=== PATIENT | female | born 1990 | race Caucasian/White ===

== ENCOUNTER → 2020-04-07 11:30 | Outpatient (BNVA) | payer OTHER, SELFPAY | PROVIDERS: PCP Internal Medicine; Visit Provider Orthopaedic Surgery | DX: Z76.89 Persons encountering health services in other specified circumstances (principal) ==

== ENCOUNTER 2020-04-14 13:11 | Outpatient (REF) | payer OTHER, SELFPAY ==
[2020-04-14 14:00] LABS: COVID-19 Test Negative (Negative)
== END 2020-04-14 13:12 | disposition home or self-care (01) ==
LOC: HO.LAB 13:11
PROVIDERS: PCP Internal Medicine; Visit Provider Internal Medicine
DX: Z20.828 Contact with and (suspected) exposure to other viral communicable diseases (principal)
CPT/HCPCS: 87635

== ENCOUNTER 2020-05-10 16:22 | Outpatient (REF) | payer SELFPAY ==
[2020-05-10 17:41] LABS: Vitamin D 25-OH Total 24.2 ng/mL (>30)
== END 2020-05-10 16:23 | disposition home or self-care (01) ==
LOC: HO.LNC 16:22
PROVIDERS: Visit Provider Pathology Anatomic Pathology & Clinical Pathology
DX: Z13.89 Encounter for screening for other disorder (principal)
CPT/HCPCS: 82306

== ENCOUNTER 2020-05-25 07:07 | Day surgery (SDC) | payer OTHER, SELFPAY ==
[2020-05-22 08:33] VITALS: BMI 23.0
--- NOTE | 2020-05-23 12:17 | HO.ANESPROP2 ---
Documented by User: Adilia Bass 05/23/20 12:18 HPI - Anesthesia Eval Consult details Narrative: 29yo F for Removal Orthopedic Hardware Ankle PMFSH Past Medical History Medical History History of ankle fracture Family History Family History Father No problems noted. Mother No problems noted. Brother No problems noted. Sister No problems noted. Surgical History Surgical History History of ankle surgery Social History Social History Smoking Status: Never smoker Use of substances other than those prescribed or required for medical reasons: No Advance Directives Information Provided: No Current occupation: [employer] - Right Handed Meds Allergies Allergy/AdvReac Type Severity Reaction Status Date / Time Sulfa (Sulfonamide Allergy Intermediate HIVES, Verified 05/25/20 07:43 Antibiotics) rash/fever [SULFA(SULFONAMIDE ANTIBIOTICS)] Home Medications Medication Instructions Recorded Confirmed Type ibuprofen 400 mg tablet 400 mg PO TID 03/22/20 03/25/20 History Exam Exam Date and Time: May 23, 2020 1217 Height,Weight and Vital Signs: Height 5 ft Weight 53.524 kg Assessment and Plan Assessment Anesthesia Assessment: Chart Reviewed Documented by User: Morro Rosa MD 05/25/20 09:42 PMFSH Past Medical History Medical History History of ankle fracture Family History Family History Father No problems noted. Mother No problems noted. Brother No problems noted. Sister No problems noted. Surgical History Surgical History History of ankle surgery Social History Social History Smoking Status: Never smoker Use of substances other than those prescribed or required for medical reasons: No Advance Directives Information Provided: No Current occupation: [employer] - Right Handed Meds Allergies Allergy/AdvReac Type Severity Reaction Status Date / Time Sulfa (Sulfonamide Allergy Intermediate HIVES, Verified 05/25/20 07:43 Antibiotics) rash/fever [SULFA(SULFONAMIDE ANTIBIOTICS)] Home Medications Medication Instructions Recorded Confirmed Type ibuprofen 400 mg tablet 400 mg PO TID 03/22/20 03/25/20 History Exam Airway Mallampati Class: I TM Dist: >3cm Neck ROM: Full Loose/Missing/Broken Teeth: No Heart: rrr Lungs: nl Other: ao Assessment and Plan Assessment Anesthesia Assessment: Anesthesia Plan Discussed Final Anesthetic Review NPO: No ASA Class: I Final Preanesthetic Review: No Changes in Pt Med Stat, Meds/Allgs Chart Reviewed, Consent Obtained/Reviewed and Anes Risks/Benef Reviewed Patient Risk: Low Procedure Risk: Low Anesthetic Plan Anesthetic Plan: GA and Regional Block Disposition: Standard PACU
--- NOTE | 2020-05-24 15:00 | MHC.SHP ---
Pre-Procedural Eval Section B Chief Complaint: Painful hardware of Right Ankle Relevant Family History (Specify if Yes): No Relevant Social History: None Present Medications: see Short Stay Collaborative assessment Medical History: No relevant PMH Allergies: Allergies Allergy/AdvReac Type Severity Reaction Status Date / Time Sulfa (Sulfonamide Allergy Intermediate HIVES, Verified 05/22/20 08:39 Antibiotics) rash/fever [SULFA(SULFONAMIDE ANTIBIOTICS)] Review of Systems Sugical H&P ROS: Negative: Constitution, Cardiovascular, Respiratory, Neurological, Psychiatric, Hem-Onc, Allergic/Immunologic, Gastrointestinal, Genitourinary, Integumentary, Endocrine and Eyes/Ears/Nose/Throat Exam Surgical H&P Exam: Normal: HEENT, Normal: Heart, Normal: Lungs, Normal: Abdomen and Normal: Neurological and Not Evaluated: Extremities Plan Diagnosis/Plan: Unchanged Patient has been examined and remains a candidate for the planned procedure
[2020-05-25] VITALS (7 sets, daily range): BP systolic 105–127; BP diastolic 59–86; PULSE 72–108; RESP 14–21; TEMP 36.6–37.1; O2SAT 95–100
[2020-05-25 07:25] LABS: UPreg QC Valid YES; Urine Pregnancy NEGATIVE (NEGATIVE)
[2020-05-25] MEDS: Lactated Ringers 1,000 ML 100 ML IVCONT (07:33)
--- NOTE | 2020-05-25 08:04 | FL_ITS ---
EXAMINATION: XR FLUOROSCOPY WITH IMAGES CLINICAL INFORMATION: Hardware removal right ankle COMPARISON: Radiographs right ankle 05/07/2016 TECHNIQUE: Fluoroscopy performed by Dr. Tariq Instrizabella. Fluoroscopy time: under 1 minute DAP: 0.008 mGycm2 Images: 1 FINDINGS: The previously noted hardware distal fibular shaft and screws distal tibia are no longer demonstrated. Unremarkable screw tracks are present as expected. There are skin lynda overlying the medial ankle. FL/FL guidance in OR IMPRESSION: Hardware no longer demonstrated. Skin lynda present medial side.
--- NOTE | 2020-05-25 10:01 | PM.PRCOR ---
Brief Operative Note Date of procedure: 05/25/20 Pre-op diagnosis: painfull hardware right ankle Post-op diagnosis: same Procedure: removalhardware right ankle Anesthesia: GLMA Surgeon: Marciano Richard Estimated blood loss (mL): 3 Pathology: none sent Condition: stable Disposition: PACU
--- NOTE | 2020-05-31 16:09 | OP_ITS ---
SURGEON: Marciano Richard MD PREOPERATIVE DIAGNOSIS: Painful hardware, right ankle. POSTOPERATIVE DIAGNOSIS: Painful hardware, right ankle. PROCEDURE PERFORMED: Removal of hardware, right ankle. ESTIMATED BLOOD LOSS: COMPLICATIONS: ANESTHESIA: ASSISTANTS: SPECIMENS: CLINICAL NOTE: This lady underwent an open reduction and internal fixation of her right ankle a number of years ago. Recently, has been giving more problem with the hardware and therefore after explaining the risks, benefits, and alternatives and answering all the questions, it was mutually agreed upon to carry out the following procedure. DESCRIPTION OF PROCEDURE: Under a general anesthetic with a block, the patient was placed supine on the operating table. A pneumatic tourniquet cuff was placed around the upper right thigh and inflated to 300 mm of Hg at the beginning of the case. The right foot and ankle were then prepped and draped in standard fashion. Surgical time-out was then performed. The patient was identified, procedure confirmed, site confirmed. Medical analogy and history were reviewed. No preoperative. Standard DVT prophylaxis. All other items were discussed and agreed upon. Under fluoroscopic guidance approach to the medial side, first the medial incision was opened. It was dissected down through the soft tissues. The heads of the screw were identified. They were successfully removed. Turning our attention to the lateral side, the old incision was opened. The soft tissues were divided over the plate. The soft tissues were then elevated exposing the whole plates and screws. All the screws were then removed and the plate was removed. The screw holes were then debrided. Image was taken under fluoroscopy confirming all the hardware was gone and therefore proceeded to closure. The incisions were closed identically. The deep tissue was approximated loosely with #2 Dexon. The skin approximated using interrupted 2-0 Dexon. Skin was closed with lynda. The tourniquet was let down. Total tourniquet time 36 minutes. Sterile dressing was then applied. An Jerzy wraps was applied. The patient's anesthesia was then reversed and transferred supine to the room bed and taken to recovery room in good condition. Intraoperatively, there was approximately 5 mL blood loss. No complications. Marciano Richard MD KKI/MIGUEL ANGELL / [id number]
== END 2020-05-25 11:50 | disposition home or self-care (01) ==
PROVIDERS: Nurse Practitioner; PCP Internal Medicine; Visit Provider Orthopaedic Surgery
PROC: (CPT 20680; principal; 2020-05-25 08:30)
DX: T84.84XA Pain due to internal orthopedic prosthetic devices, implants and grafts, initial encounter (principal); G89.18 Other acute postprocedural pain; M25.571 Pain in right ankle and joints of right foot; Z88.2 Allergy status to sulfonamides
CPT/HCPCS: 20680; 81025; J2250; J2405; J3010

== ENCOUNTER → 2020-06-13 12:22 | Outpatient (BNVA) | payer OTHER, SELFPAY | PROVIDERS: PCP Internal Medicine; Visit Provider Orthopaedic Surgery | DX: Z76.89 Persons encountering health services in other specified circumstances (principal) ==

== ENCOUNTER → 2020-06-21 08:42 | Outpatient (BNVA) | payer OTHER, SELFPAY | PROVIDERS: Visit Provider Orthopaedic Surgery | DX: Z76.89 Persons encountering health services in other specified circumstances (principal) ==

== ENCOUNTER 2020-06-24 10:36 | Inpatient (IN) | payer OTHER, SELFPAY ==
[2020-06-24] VITALS (19 sets, daily range): BP systolic 100–123; BP diastolic 53–90; PULSE 66–88; RESP 16–20; TEMP 36.1–37.2; O2SAT 97–100; BMI 23.0
--- NOTE | 2020-06-24 09:16 | MHC.SHP ---
Pre-Procedural Eval Section B Chief Complaint: Per Karoline - Surgery no order provided Details of Present Illness: This lady had undergone hardware of her ankle a few weeks ago. She has developed some redness and discomfort involving the medial side. Because of this lack of improvement she has come in today for an irrigation and debridement off the medial aspect of her right ankle. Relevant Family History (Specify if Yes): No Relevant Social History: None Present Medications: None Medical History: No relevant PMH History of Previous Operations: No relevant previous surgery Allergies: Allergies Allergy/AdvReac Type Severity Reaction Status Date / Time Sulfa (Sulfonamide Allergy Intermediate HIVES, Verified 05/25/20 07:43 Antibiotics) rash/fever [SULFA(SULFONAMIDE ANTIBIOTICS)] Review of Systems Sugical H&P ROS: Negative: Constitution, Cardiovascular, Respiratory, Neurological, Psychiatric, Hem-Onc, Allergic/Immunologic, Gastrointestinal, Genitourinary, Integumentary, Endocrine and Eyes/Ears/Nose/Throat Exam Surgical H&P Exam: Normal: HEENT, Normal: Heart, Normal: Lungs, Normal: Abdomen, Normal: Skin and Normal: Neurological and Significant Findings: Extremities (Some erythema surrounding incision. Minimal discharge. Tender.) Plan Diagnosis/Plan: Unchanged I have reviewed the history and physical and performed a pertinent physical examination on my patient. No changes have occurred unless specified.
[2020-06-24 09:33] LABS: COVID-19 Test Negative (Negative)
[2020-06-24 09:43] LABS: UPreg QC Valid YES; Urine Pregnancy NEGATIVE (NEGATIVE)
[2020-06-24] MEDS: Lactated Ringers 1,000 ML 100 ML IVCONT ×3 (09:45→21:53)
--- NOTE | 2020-06-24 10:06 | HP_ITS ---
DATE OF SERVICE: 06/24/2020 ADMISSION DIAGNOSIS: Painful medial incision, possible infection, post removal of hardware from the right ankle. CLINICAL NOTE: This lady underwent a removal of hardware a few weeks ago. Postoperatively, she has had some difficulty with pain on the medial incision. There is some erythema and minimal amount of discharge. Therefore, for precautions, she is being brought in for incision and drainage. PAST MEDICAL HISTORY: Unremarkable. MEDICATIONS: None. ALLERGIES: SULFA DRUGS. REVIEW OF SYSTEMS: Unremarkable. PHYSICAL EXAMINATION: HEAD AND NECK: Clear. CHEST: Clear. HEART: Sounds dull. ABDOMEN: Unremarkable. EXTREMITIES: On the medial side of the right ankle, there was some erythema. The incision is closed, but there has been some discharge in the past. Distal neurovascular is intact. PLAN: Because of the ongoing discomfort and the erythema, we have elected to bring her back to the operating room for an incision and drainage. We have discussed the risks, benefits, and alternatives of the surgery including the risk of infection, bleeding, nerve injury, ongoing pain, swelling, stiffness, need for further surgery, other complications were not limited to those of anesthetics. I have answered all her questions. She has been booked for an I and D of her right ankle. MD KARON Walker/PLACIDO / [id number]
--- NOTE | 2020-06-24 10:13 | P.CONAN_ITS ---
[facility] Past Medical History Medical History History of ankle fracture Family History Family History Father No problems noted. Mother No problems noted. Brother No problems noted. Sister No problems noted. Surgical History Surgical History History of ankle surgery Social History Social History Smoking Status: Never smoker Second Hand Smoke Exposure: No Use of substances other than those prescribed or required for medical reasons: No Advance Directives: No Advance Directives Information Provided: No Advance Directives on File: No Recently lost weight without trying: No Current occupation: [employer] - Right Handed Meds Allergies Allergy/AdvReac Type Severity Reaction Status Date / Time Sulfa (Sulfonamide Allergy Intermediate HIVES, Verified 05/25/20 07:43 Antibiotics) rash/fever [SULFA(SULFONAMIDE ANTIBIOTICS)] Home Medications Medication Instructions Recorded Confirmed Type ibuprofen 400 mg tablet 400 mg PO TID 03/22/20 03/25/20 History Exam Exam Date and Time: June 24, 2020 1013 Height,Weight and Vital Signs: Height 5 ft Weight 53.524 kg Last Vital Signs Temp 98.6 F 06/24/20 09:14 Pulse 83 06/24/20 09:14 Resp 16 06/24/20 09:14 BP 115/80 06/24/20 09:14 Pulse Ox 98 06/24/20 09:14 Pertinent Lab Results Pertinent Lab Results: Laboratory Tests 06/24/20 06/24/20 09:02 09:02 Urine Test NEGATIVE COVID-19 (ROB) Negative COVID-19 Clin Com See Note Airway Mallampati Class: II TM Dist: >3cm Neck ROM: Full
[2020-06-24] MEDS: fentaNYL citrate/PF 100 MCG/2 ML VIAL 50 MCG IVPUSH ×4 (10:44→11:20)
--- NOTE | 2020-06-24 10:48 | PM.PRCOR ---
Brief Operative Note Date of procedure: 06/24/20 Pre-op diagnosis: delayed wound healling with possible infection Post-op diagnosis: other (delayed wound healing with no infection) Anesthesia: GLMA Surgeon: Marciano Richard Estimated blood loss (mL): 5 Pathology: other (cultures sent) Condition: stable Disposition: PACU
[2020-06-24] MEDS: traMADoL HCL 50 MG TABLET PO ×2 (11:14→19:35)
--- NOTE | 2020-06-24 11:35 | OP_ITS ---
SURGEON: Marciano Richard MD PREOPERATIVE DIAGNOSIS: Delayed wound healing with possible infection, medial incision right ankle. POSTOPERATIVE DIAGNOSIS: Delayed wound healing with no evidence of infection, right ankle. PROCEDURE PERFORMED: ESTIMATED BLOOD LOSS: COMPLICATIONS: ANESTHESIA: ASSISTANTS: SPECIMENS: CLINICAL NOTE: This lady had undergone removal of hardware few weeks ago. She has had problems with irritation and pain on the medial side of her wound. She subsequently developed a pruritic rash on her upper leg as well. Therefore, after explaining the risks, benefits, and alternatives and answering all the questions, it was mutually agreed upon to carry out the following procedure. DESCRIPTION OF PROCEDURE: Under a general anesthetic, the patient was placed supine on the operating table. Pneumatic tourniquet cuff was placed around the upper right thigh, but was not inflated during the case. The right foot and ankle were then prepped and draped in standard fashion. Surgical time-out was then performed. The patient was identified, procedure confirmed, site confirmed. Medical analogy and history reviewed. No preoperative antibiotics were given. Standard DVT prophylaxis was in place. All other items were discussed and agreed upon. The incision was opened along the old scar. There was some granulated tissue in the center, which was debrided. There was no purulence. There was no fluid. This flaps were elevated on both sides. Cultures were taken and then 2 g of IV Kefzol were given. The whole area was inspected. The soft tissues including the deltoid ligament were healed. There was no evidence of any erythema, redness, or necrotic tissue. There was no evidence of any discharge or fluid . Areas that were bleeding were cauterized. The wound was then thoroughly irrigated and then it was closed with 3-0 nylon sutures. Sterile dressing was then applied. The patient's anesthesia was then reversed. They were transferred supine to the room bed and taken to recovery room in good condition. Intraoperatively, there was virtually no blood loss, no complications. Marciano Richard MD KKI/MODL / [id number]
[2020-06-24] MEDS: Morphine Sulfate 2 MG/ML CARTRIDGE IVPUSH ×5 (12:32→21:51)
[2020-06-24] MEDS: Ketorolac Tromethamine 15 MG/ML VIAL IVPUSH ×2 (17:22→23:00)
[2020-06-24] MEDS: ceFAZolin Sodium/Dextrose,Iso 2 GM/50 ML PIGGYBACK IV (18:40)
--- NOTE | 2020-06-24 21:20 | MHC.PIE ---
p; pt c/o pain 11/30. note; prn ultram 50 mg and prn morphine 2 mg iv given with no effect i; dr alex notified; new order ultram 100 mg po q4h prn e; will cont to monitor
[2020-06-24] MEDS: traMADoL HCL 50 MG TABLET 100 MG PO (23:00)
[2020-06-25] VITALS (7 sets, daily range): BP systolic 105–119; BP diastolic 61–82; PULSE 63–82; RESP 15–16; TEMP 36.3–37.3; O2SAT 99–100
--- NOTE | 2020-06-25 | XR_ITS ---
EXAMINATION: XR ANKLE, RIGHT CLINICAL INFORMATION: Removal of hardware. COMPARISON: Right ankle 05/07/2016 TECHNIQUE: AP, lateral, and mortise views of the right ankle. FINDINGS: There is removal of lateral fibular plate and screws and 2 medial malleolar screws. There is no erosions to suspect any osteomyelitis. There is nonspecific mild medial malleolar soft tissue swelling. The ankle mortise and subtalar joints are normal. XR/XR ankle RT min 3V IMPRESSION: Status post removal of fibular plate and screws and 2 medial malleolar screws there is no periosteal erosive changes or change in bony density to suspect any osteomyelitis. There is minimal medial malleolar soft tissue swelling.
[2020-06-25] MEDS: Morphine Sulfate 2 MG/ML CARTRIDGE IVPUSH ×6 (00:06→23:36)
[2020-06-25] MEDS: ceFAZolin Sodium/Dextrose,Iso 2 GM/50 ML PIGGYBACK IV ×3 (02:24→18:12)
[2020-06-25] MEDS: Ketorolac Tromethamine 15 MG/ML VIAL IVPUSH ×4 (05:24→22:40)
[2020-06-25] MEDS: traMADoL HCL 50 MG TABLET 100 MG PO (05:24)
[2020-06-25] MEDS: Lactated Ringers 1,000 ML 100 ML IVCONT ×3 (05:25→23:37)
--- NOTE | 2020-06-25 07:50 | PM.PNORT ---
Subjective Subjective Date of Service: 06/25/20 Principal diagnosis: Postop right ankle incision and drainage Interval history: Has had significant problems with pain control postop. Has been able to move her ankle in foot those uncomfortable on the inside. Has been on morphine IV as well as tramadol which was increased by Dr. Madison 200 mg q.6 with minimal benefits. No other interval issues. Gram stain from surgery demonstrated no organisms and some polys. Has been on IV kefzol overnight. Physical Exam Vital Signs: Vital Signs: Last Vital Signs Temp 97.5 F 06/25/20 07:36 Pulse 78 06/25/20 07:36 Resp 16 06/25/20 07:36 BP 119/82 06/25/20 07:36 Pulse Ox 100 06/25/20 07:36 Body Mass Index 23.0 Extrem: Other: Examination of the ankle with the Jerzy wrap off, demonstrates there is no staining on the dressing. There is no significant swelling. She is able to actively flex and extend her toes and ankle though she says there is some pain. Progress Note: A&P Assessment and plan (1) Ankle pain, right: Problem details: With her ongoing pain we will keep her at this time to try to control this. We do not have a good reason why she has the pain that she has. At the time of surgery everything looked. There was no discharge or necrotic type tissue. Is possible though not likely that she may have osteomyelitis which would not seen by as is only few weeks postop from index procedure E be felt more likely that she has have evidence of infection with the soft tissues. What we will do today though is get CBC and an x-ray just to have a low. We will convert her pain medication to Dilaudid IV in oral to see get that at the control. And we will re-evaluate more all. Status: Acute Fall Risk Details Current Medications: Current Medications Generic Name Dose Route Start Last Admin Trade Name Freq PRN Reason Stop Dose Admin Acetaminophen 650 mg 06/24/20 10:36 Acetaminophen Supp 650 Mg Supp.Rect CA Q6H PRN Pain, Mild (Pain Scale 1-3) Hydromorphone HCl 0.25 mg 06/25/20 07:38 Hydromorphone Hcl 0.5 Mg/0.5 Ml Syringe IVPUSH Q4H PRN Pain, Severe (Pain Scale 7-10) Hydromorphone HCl 1 mg 06/25/20 07:38 Hydromorphone Hcl 2 Mg Tablet PO Q4H PRN Pain, Moderate (Pain Scale 4-6 Lactated Ringer's 1,000 mls @ 100 mls/hr 06/24/20 09:45 06/25/20 05:25 Lr IVCONT 100 mls/hr .Q10H KAVYA Administration Cefazolin Sodium/Dextrose 2 gm in 50 mls @ 100 mls/hr 06/24/20 10:45 06/25/20 02:57 Ancef IV Infused Q8H KAVYA Infusion Ketorolac Tromethamine 15 mg 06/24/20 11:30 06/25/20 05:24 Ketorolac Tromethamine 15 Mg/Ml Vial IVPUSH 15 mg Q6H KAVYA Administration Naloxone HCl 0.2 mg 06/25/20 07:38 Naloxone Hcl 0.4 Mg/Ml Vial IVPUSH Q2M PRN Excessive sedation or RR < 8 Ondansetron HCl 4 mg 06/24/20 09:33 Ondansetron Hcl 4 Mg/2 Ml Vial IVPUSH ONCE PRN Nausea and Vomiting Ondansetron HCl 4 mg 06/24/20 10:36 Ondansetron Hcl 4 Mg/2 Ml Vial IVPUSH Q8H PRN Nausea and Vomiting Sodium Chloride 3 ml 06/24/20 16:00 06/24/20 23:00 0.9 % Sodium Chloride Flush 3 Ml Syringe IVFLUSH Not Given QSHIFT KAVYA Sodium Chloride 3 ml 06/25/20 08:00 0.9 % Sodium Chloride Flush 3 Ml Syringe IVFLUSH QSHIFT KAVYA Sodium Chloride 3 ml 06/25/20 08:00 0.9 % Sodium Chloride Flush 3 Ml Syringe IVFLUSH QSHIFT KAVYA Time Spent With Patient Time: Total time spent is greater than 50% in coordination of care (as documented) at patient's floor/unit and/or counseling patient: Time with patient: less than 15 minutes
[2020-06-25 08:34] LABS: Baso%MD 0.1 %; Hematocrit 30.7 % (37-47); Hemoglobin 9.8 g/dl (12.0-16.0); IG%MD 0.4 %; Lymph%MD 17.5 %; Mean Corpuscular HGB Conc 31.9 g/dl (31.0-35.0); Mean Corpuscular Hemoglobin 28.7 pg (27.0-33.0); Mean Platelet Volume 9.2 fL (9.4-12.3); Mono%MD 11.1 %; Neut%MD 70.9 %; Platelet Count 359 X10*3/uL (160-400); Red Blood Count 3.41 X10*6/uL (4.20-5.50); Red Cell Distribution Width 12.8 % (11.0-16.0); White Blood Count 7.4 X10*3/uL (4.8-10.8)
[2020-06-25] MEDS: HYDROmorphone HCl 0.5 MG/0.5 ML SYRINGE 0.25 MG IVPUSH ×3 (08:54→19:54)
[2020-06-25] MEDS: 0.9 % Sodium Chloride Flush 3 ML SYRINGE IVFLUSH ×2 (08:55→14:50)
[2020-06-25 10:10] LABS: Lymphocytes Absolute Manual 1.1 X10*3/uL (0.6-4.8); Lymphocytes Percent Manual 15 % (20-40); Monocytes Absolute Manual 0.4 X10*3/uL (0.0-1.2); Monocytes Percent Manual 5 % (2-11); Neutrophils Percent Manual 80 % (45-73)
[2020-06-25 10:11] LABS: Band Neutrophils Percent 0 % (3-5); Hypochromasia 1+; Neutrophils Absolute Manual 5.9 X10*3/uL (2.2-7.9); Platelet Estimate NORMAL (NORMAL); RBC Morphology NOTED
[2020-06-25 10:12] LABS: Platelet Morphology Comment NORMAL
--- NOTE | 2020-06-25 10:30 | MHC.CM.PN ---
NURSE EXTRACORPOREAL CIRCULATION SPECIALIST NOTE ELECTRONIC MEDICAL RECORD REVIEWED , MET WITH PATIENT AND EXPLAINED THE ROLE F THE NURSE EXTRACORPOREAL CIRCULATION SPECIALIST IN THE TRANSITION FROM THE HOSPITAL TO HOME. PATIENT DOES NOT HAVE A FRANCES CARE PROXY AND WOULD LIKE TO COMPETE ONE TOMORROW, SHE LIVES WITH HER MOTHER, AND HAS BEEN OUT OF WORK ON SHE HAD SURGICAL HARDWARE INSERTED INTO HER ANKLE AND THEN HOSPITALIZED AFTER HER ANKLE BECAME SWOLLEN AND PAINFUL , \SHE WENT TO THE OR AND HAD IRRIGATION AND DEBRIDEMENT OF THE MEDICAL ASPECT OF THE RIGHT ANKLE SHE IS ACTIVE, INDEPENDENT IN ALL ADLS AND MOBILITY, SHE HAS NO VNA OR DME SERVICES IN THE HOME, DISCHARGE PLAN HOME NO SERVICES TRANSPORTATION FAMILY/FRIEND PCP VICKY CHAMPION AT THE [facility] PATIENT INSTRUCTED TO CALL FOR POST HOSPITA DISCHARGE FOLLOW UPORTHOPEDIC SURGICAL FOLLOW UP PER DISCHARGE INSTRUCTIONS EXTRACORPOREAL CIRCULATION SPECIALIST TO CMPLETE HCP ON 06/26/20
--- NOTE | 2020-06-25 11:12 | HO.POSTANES ---
Post Anesthesia Evaluation Post Anesthesia Evaluation Vital Signs: Vital Signs Temp Pulse Resp BP Pulse Ox 06/25/20 08:54 16 06/25/20 07:36 97.5 F 78 16 119/82 100 06/25/20 03:44 99.1 F 63 15 114/76 99 06/24/20 23:56 98.2 F 70 16 123/78 99 Anesthesia: General LMA Mental Status: Awake Pain Control: Satisfactory Nausea/Vomiting: None Hydration: Adequate Anesthesia-Related Issues: No Anes. Related Issues
[2020-06-25] MEDS: HYDROmorphone HCl 2 MG TABLET 1 MG PO ×2 (12:13→18:12)
--- NOTE | 2020-06-25 21:40 | MHC.PIE ---
p; pt c/o pain 01/30 to rt feet/ank. pt reports dilaudid not working as well as morphine i; dr alex notified; new order d/c dilaudid 0.25 iv now. new order mophine 2mg iv q2h prn e; will cont to monitor
[2020-06-26] VITALS: BP 121/55; PULSE 60; RESP 20; TEMP 36.4; O2SAT 98
[2020-06-26] MEDS: ceFAZolin Sodium/Dextrose,Iso 2 GM/50 ML PIGGYBACK IV (01:32)
[2020-06-26] MEDS: Morphine Sulfate 2 MG/ML CARTRIDGE IVPUSH ×4 (01:33→08:20)
[2020-06-26 03:27] VITALS: BP 115/69; PULSE 65; RESP 20; TEMP 36.4; O2SAT 97
[2020-06-26] MEDS: Ketorolac Tromethamine 15 MG/ML VIAL IVPUSH (05:33)
[2020-06-26 07:22] VITALS: BP 106/65; PULSE 65; RESP 18; TEMP 35.9; O2SAT 97
[2020-06-26 08:20] VITALS: RESP 16
--- NOTE | 2020-06-26 09:12 | MHC.CM.PN ---
Pt will DC home today with no services. Pt to self arrange transportation
--- NOTE | 2020-06-26 12:32 | MHC.CM.PN ---
PT DISCHARGED HOME W/FAMILY FRIEND TO TRANSPORT WITH DIRECTIONS TO FOLLOW-UP WITH ORTHO IN 7-10 DAYS.
--- NOTE | 2020-07-13 16:55 | DS_ITS ---
ADMISSION DIAGNOSES: Painful medial incision with possible infection, post hardware removal from right ankle. DISCHARGE DIAGNOSES: Painful medial incision with no infection, post removal of hardware of right ankle. CLINICAL SUMMARY: This lady who had undergone a removal of hardware a few weeks prior to admission, was having ongoing pain and discomfort, which looked like to be a little discharge from her ankle, therefore she was admitted to the hospital. PHYSICAL EXAMINATION: At the time of admission was unremarkable other than findings of the wound that was dehisced minimally. There was no significant swelling and she had full distal neurovascular status to her ankle. COURSE WHILE ON HOSPITAL: On the day of her admission, she underwent incision and drainage at the time of surgery. There was no evidence of any infection or necrotic tissue or anything untoward. Postoperatively, she remained in the hospital initially for an extra 24 hours due to significant amount of pain. Subsequent investigations including blood work and an x-ray demonstrated absolutely no evidence of any abnormalities. Therefore, on the date of her discharge, she was sent home with analgesics with instructions to weight bear as tolerated and to follow up in the office in couple of weeks' time. MD KARON Walker/PLACIDO / [id number]
== END 2020-06-26 10:05 | disposition home or self-care (01) | DRG 813 ==
LOC: HO.S3 06-25 07:43 → HO.SSS 06-25 07:43
PROVIDERS: Anesthesiology; Admitting Provider Orthopaedic Surgery; PCP Internal Medicine; Referring Provider Orthopaedic Surgery; Visit Provider Orthopaedic Surgery
PROC: 0HBMXZZ Excision of Right Foot Skin, External Approach (ICD-10-PCS; CPT 27607; principal; 2020-06-24 08:00)
DX: T81.89XA Other complications of procedures, not elsewhere classified, initial encounter (principal); Z20.828 Contact with and (suspected) exposure to other viral communicable diseases; Z88.2 Allergy status to sulfonamides; Z88.5 Allergy status to narcotic agent; Z79.1 Long term (current) use of non-steroidal anti-inflammatories (NSAID); Z79.899 Other long term (current) drug therapy
CPT/HCPCS: 36415; 73610; 81025; 85007; 85027; 87071; 87073; 87205; 87635; 99024; J0131; J0690; J1100; J1170; J1885; J2250; J2270; J2405; J3010

== ENCOUNTER → 2020-07-07 11:05 | Outpatient (BNVA) | payer OTHER, SELFPAY | PROVIDERS: PCP Internal Medicine; Visit Provider Physician Assistant | DX: Z76.89 Persons encountering health services in other specified circumstances (principal) ==

== ENCOUNTER → 2020-07-21 10:05 | Outpatient (BNVA) | payer OTHER, SELFPAY | PROVIDERS: PCP Internal Medicine; Visit Provider Physician Assistant ==

== ENCOUNTER 2020-08-15 10:00 | Outpatient (RCR) | payer OTHER, SELFPAY ==
--- NOTE | 2020-08-09 14:15 | MHC.PT.EP ---
[facility] [place] Office [place] Office [place] Office [address] Mela Trevizo [address] [phone] F: [phone] F: [phone] F: [phone] F: [phone] Physical Therapy Plan of Care Date of Evaluation: 08/08/20 Date of Surgery: 05/25/20, 06/24/20 Diagnosis: s/p R ankle surgery Assessment: Patient is a 30 year old R handed female who presents with s/s consistent with s/p ankle surgery. She originally had an ORIF in 2011. She had the hardware removed in May of 2020 with resultant infection. I&D performed 06/25/20. 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 Patient past medical history is unremarkable. Current impairments include pain, ROM, strength, balance, safety, independence, activity tolerance and functional mobility. Functional limitations include decreased ability to walk, stand, transfer, negotiate stairs, and perform weight bearing activities.. Patient is motivated with good rehab potential. Skilled PT will address impairments and functional limitations in order to achieve goals. Frequency and Duration: The patient will be seen 2x/week for 6 weeks Short Term Goals: I with HEP - 2weeks ROM WNL - 3 weeks SLB > 30 seconds without wobble - 3 weeks Pipe Maker Goals: LEFS 68/80 - 5 weeks Return to PLOF - 6 weeks Ankle strength 4+/5 - 6 weeks Treatment Plan: Modalities to reduce pain, spasms and effusion. Manual therapy to restore motion and function. Therapeutic exercise to improve strength and flexibility. Neuromuscular re-education for posture and balance. Therapeutic activities to return to functional activities of daily living. Electronically signed by: Alexys Godwni, PT Please sign and return to therapist. Thank you for your referral.
--- NOTE | 2020-10-05 13:09 | MHC.PT.DC ---
[facility] [place] Office [place] [facility] [place] Office [address] Mela Trevizo 140 [facility] [phone] F: [phone] F: [phone] F: [phone] F: [phone] Physical Therapy Discharge Report Diagnosis: s/p R ankle surgery Date of Surgery: 05/25/20, 06/24/20 Date of Evaluation: 08/08/20 Date of Discharge: 09/05/20 Treatments to Date: 2 Cancellations to Date: 0 No Shows to Date: 0 Discharge Status: Patient Elected to Stop Discharge Summary: Pt d/c at this time due to painful response to PT. Electronically signed by: Alexys Godwin, PT Please sign and return to therapist. Thank you for your referral.
== END 2020-10-05 13:09 | disposition home or self-care (01) ==
LOC: HO.PTCHIC 10:00
PROVIDERS: PCP Internal Medicine; Visit Provider Physician Assistant
DX: T84.84XD Pain due to internal orthopedic prosthetic devices, implants and grafts, subsequent encounter (principal)
CPT/HCPCS: 97110; 97112; 97140; 97162

== ENCOUNTER 2020-08-18 10:29 | Outpatient (REF) | payer OTHER, SELFPAY ==
--- NOTE | ~2020-08-18 | XR_ITS ---
EXAMINATION: XR ANKLE, RIGHT CLINICAL INFORMATION: Other specified post procedural state COMPARISON: Previous x-ray June 2020 TECHNIQUE: AP, lateral, and mortise views of the right ankle. FINDINGS: There are defects seen in the distal fibular shaft and medial malleolus from previous orthopedic hardware. This appears unchanged. No fracture or dislocation is seen. The ankle mortise is normal. Soft tissues are normal. XR/XR ankle RT min 3V IMPRESSION: Stable findings post orthopedic hardware removal.
== END 2020-08-18 10:30 | disposition home or self-care (01) ==
LOC: HO.XRAY 10:29
PROVIDERS: PCP Internal Medicine; Visit Provider Physician Assistant
DX: Z98.890 Other specified postprocedural states (principal)
CPT/HCPCS: 73610

== ENCOUNTER → 2020-09-19 09:54 | Outpatient (BNVA) | payer OTHER, SELFPAY | PROVIDERS: PCP Internal Medicine; Visit Provider Orthopaedic Surgery ==

== ENCOUNTER → 2020-10-16 08:04 | Outpatient (BNVA) | payer OTHER, SELFPAY | PROVIDERS: PCP Internal Medicine; Visit Provider Nurse Practitioner Family ==